=== PATIENT | male | born 1970 | race Caucasian/White ===

== ENCOUNTER 2018-08-11 19:34 | Outpatient (CLI) | payer MEDICAID | END 2018-08-11 19:35 | disposition critical access hospital (66) | LOC: EMS 19:34 | PROVIDERS: ATTEND Surgery | DX: R45.1 Restlessness and agitation (principal); R46.89 Other symptoms and signs involving appearance and behavior | CPT/HCPCS: A0425; A0429; A0999 ==

== ENCOUNTER 2018-08-11 19:50 | Emergency (ER) | payer OTHER ==
--- NOTE | 2018-08-11 20:40 | ED Physician Documentation ---
History of Present Illness - Stated complaint Stated Complaint: FIT FOR CONFINEMENT - Chief complaint Chief Complaint: General - History obtained from History obtained from: Patient, Police - History of Present Illness Timing: Today (He was intoxicated and he is being arrested. At worst his last drink was 6 or 630 about 2 to 2-1/2 hours ago on my examination. 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.) Review of Systems Constitutional: denies: Fever, Chills Nose: denies: Rhinorrhea / runny nose, Congestion Cardiac: denies: Chest pain / pressure, Palpitations PD PAST MEDICAL HISTORY - Past Medical History Cardiovascular: None Respiratory: None Endocrine/Autoimmune: None GI: None : None HEENT: None Psych: None Musculoskeletal: Chronic back pain Derm: None - Past Surgical History Past Surgical History: Yes General: Appendectomy HEENT: Cataracts - Present Medications Home Medications: Ambulatory Orders Medication Instructions Recorded Confirmed cephALEXin [Cephalexin] 500 mg PO QID #28 tablet 09/30/15 - Allergies Allergies/Adverse Reactions: Allergies Allergy/AdvReac Type Severity Reaction Status Date / Time morphine AdvReac Intermediate Hallucinati Verified 02/04/14 10:38 ons - Social History Does the pt smoke?: Yes Smoking Status: Current every day smoker Does the pt drink ETOH?: Yes Does the pt have substance abuse?: No - Immunizations Immunizations are current?: Yes Immunizations: TDAP current <10years - POLST Patient has POLST: No PD ED PE NORMAL - Vitals Vital signs reviewed: Yes - General General: Other (He was screaming and agitated on arrival, he is since calmed down without any pharmacologic intervention. He is awake alert and oriented with slightly slurred speech but he is cogent and cooperative.) - HEENT HEENT: PERRL, Other (sl nystagmus) - Neck Neck: Supple, no meningeal sign, No bony TTP - Neuro Neuro: Alert and oriented X 3, Normal speech - Psych Psych: Normal mood, Normal affect Results - Vitals Vitals: Vital Signs - 24 hr 08/11/18 20:05 Temperature 36.6 C Heart Rate 80 Respiratory 20 Rate Blood Pressure 136/95 H O2 Saturation 97 Oxygen O2 Source Room air PD MEDICAL DECISION MAKING - ED course ED course: He has not drank in 2-2.5 hours so clincally ok for dischg to shelter. Tried calling [facility] to call me back. Departure - Departure Disposition: 01 Home, Self Care Clinical Impression: Alcohol intoxication Qualifiers: Complication of substance-induced condition: uncomplicated Qualified Code(s): F10.920 - Alcohol use, unspecified with intoxication, uncomplicated Condition: Good Record reviewed to determine appropriate education?: Yes Instructions: ED Alcohol Intoxication
[2018-08-11 20:49] VITALS: BP 125/92
== END 2018-08-11 20:54 | disposition home or self-care (01) ==
LOC: EDUNIT# → EDBD → ED 19:50
DX: Z02.89 Encounter for other administrative examinations (principal); F10.129 Alcohol abuse with intoxication, unspecified; F17.200 Nicotine dependence, unspecified, uncomplicated
CPT/HCPCS: 99281; 99283

== ENCOUNTER 2019-06-25 16:06 | Outpatient (CLI) | payer MEDICAID | END 2019-06-25 16:07 | disposition critical access hospital (66) | LOC: EMS 16:06 | PROVIDERS: ATTEND Surgery | DX: S01.81XA Laceration without foreign body of other part of head, initial encounter (principal); V17.4XXA Pedal cycle driver injured in collision with fixed or stationary object in traffic accident, initial encounter; Y93.55 Activity, bike riding; Y92.410 Unspecified street and highway as the place of occurrence of the external cause | CPT/HCPCS: A0425; A0429; A0999 ==

== ENCOUNTER 2019-06-25 16:32 | Emergency (ER) | payer MEDICAID, OTHER ==
[2019-06-25] MEDS ORDERED: LIDOCAINE-MPF 2% 5 ML VIAL SUBQ STA (17:16)
--- NOTE | 2019-06-25 17:19 | ED Physician Documentation ---
History of Present Illness - Stated complaint Stated Complaint: HEAD LAC - Chief complaint Chief Complaint: Trauma Hd/Nk - History obtained from History obtained from: Patient - History of Present Illness Timing: Unknown - Additonal information Additional information: Patient is brought to the emergency department via EMS for chief complaint of intoxication, fall, and scalp laceration.Patient does not remember exactly what happened or what he hit his head on. He denies any pain anywhere else or any other complaints. He does admit to drinking "2 beers". He denies drinking any other alcohol or taking any other substances. Patient states he is otherwise healthy. No other complaints at this time. Review of Systems Ten Systems: 10 systems reviewed and negative Constitutional: reports: Reviewed and negative Eyes: reports: Reviewed and negative Ears: reports: Reviewed and negative Nose: reports: Reviewed and negative Throat: reports: Reviewed and negative Cardiac: reports: Reviewed and negative Respiratory: reports: Reviewed and negative GI: reports: Reviewed and negative : reports: Reviewed and negative Skin: reports: Reviewed and negative Musculoskeletal: reports: Reviewed and negative Neurologic: reports: Reviewed and negative Psychiatric: reports: Reviewed and negative Endocrine: reports: Reviewed and negative Immunocompromised: reports: Reviewed and negative PD PAST MEDICAL HISTORY - Past Medical History Cardiovascular: None Respiratory: None Endocrine/Autoimmune: None GI: None : None HEENT: None Psych: None Musculoskeletal: Chronic back pain Derm: None - Past Surgical History Past Surgical History: Yes General: Appendectomy HEENT: Cataracts - Present Medications Home Medications: Ambulatory Orders Medication Instructions Recorded Confirmed cephALEXin [Cephalexin] 500 mg PO QID #28 tablet 09/30/15 - Allergies Allergies/Adverse Reactions: Allergies Allergy/AdvReac Type Severity Reaction Status Date / Time morphine AdvReac Intermediate Hallucinati Verified 02/04/14 10:38 ons - Social History Does the pt smoke?: Yes Smoking Status: Current every day smoker Does the pt drink ETOH?: Yes Does the pt have substance abuse?: No - Immunizations Immunizations are current?: Yes Immunizations: TDAP current <10years - POLST Patient has POLST: No PD ED PE NORMAL - Vitals Vital signs reviewed: Yes - General General: No acute distress, Other (Patient answers questions but is drowsy. He smells of alcohol. He is somewhat disheveled and has dried blood in his hands.) - HEENT HEENT: PERRL, Other (Patient has a2.5 cm laceration about 1 and half centimeter superior to the lateral aspect of his left eyebrow. This is approximately 4 mm in depth. No other head trauma noted.No foreign bodies in the wound. 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 He does answer questions appropriately, though lacks memory of the day's events.) - Psych Psych: Normal mood, Normal affect Results - Vitals Vitals: Vital Signs - 24 hr 06/25/19 06/25/19 16:35 17:44 Temperature 36.9 C 36.8 C Heart Rate 74 69 Respiratory 18 22 Rate Blood Pressure 106/66 139/79 H O2 Saturation 97 99 Oxygen O2 Source Room air - Labs Labs: Laboratory Tests 06/25/19 17:51 Ethyl Alcohol 240.2 - Rads (name of study) CT scan head Radiology: Final report received, See rad report (Negative) PD MEDICAL DECISION MAKING - ED course Complexity details: reviewed old records, reviewed results, re-evaluated patient, considered differential, d/w patient ED course: Patient was worked up with head CT and alcohol level. CT scan of the head was unremarkable. As I was preparing supplies In another room to repair the patient's laceration, the patient eloped from the emergency department. Nursing staff did try to find him, but the patient had already left the premises. Departure - Departure Disposition: ED Elope Clinical Impression: Acute alcohol intoxication Qualifiers: Complication of substance-induced condition: uncomplicated Qualified Code(s): F10.920 - Alcohol use, unspecified with intoxication, uncomplicated Forehead laceration Qualifiers: Encounter type: initial encounter Qualified Code(s): S01.81XA - Laceration without foreign body of other part of head, initial encounter Closed head injury Qualifiers: Encounter type: initial encounter Qualified Code(s): S09.90XA - Unspecified injury of head, initial encounter Condition: Poor Discharge Date/Time: 06/25/19 18:05
--- NOTE | 2019-06-25 17:48 | CT Report ---
Reason: trauma to head Procedure Date: 06/25/2019 Accession Number: [id number] / [id number] Procedure: CT - HEAD WO CPT Code: Final Report FULL RESULT: EXAM: CT HEAD EXAM DATE: 06/25/2019 05:35 PM. CLINICAL HISTORY: Trauma to head. COMPARISON: HEAD W/O 10/14/2013 1:10 AM. TECHNIQUE: Multiaxial CT images were obtained from the foramen magnum to the vertex. Reformats: Sagittal and coronal. IV contrast: None. In accordance with CT protocol optimization, one or more of the following dose reduction techniques were utilized for this exam: automated exposure control, adjustment of mA and/or KV based on patient size, or use of iterative reconstructive technique. FINDINGS: Parenchyma: No intraparenchymal hemorrhage, mass effect, or CT findings of evolving acute/subacute infarct. [place]-white differentiation is distinct. Extraaxial Spaces: Normal for age. No subdural or epidural collections identified. Ventricles: The ventricles and basal cisterns are patent. No hydrocephalus or midline shift. Sinuses: The visualized paranasal sinuses and mastoid air cells are clear. Bones: No evidence of fracture or calvarial defect. Other: The visualized superficial soft tissues are unremarkable; no hematoma or edema is evident. IMPRESSION: Normal head CT. [facility]
[2019-06-25 18:01] VITALS: BP 139/79
== END 2019-06-25 18:05 | disposition left against medical advice (07) ==
LOC: ED 16:32
DX: S01.81XA Laceration without foreign body of other part of head, initial encounter (principal); S09.90XA Unspecified injury of head, initial encounter; W19.XXXA Unspecified fall, initial encounter; Y93.55 Activity, bike riding; F10.129 Alcohol abuse with intoxication, unspecified; F17.200 Nicotine dependence, unspecified, uncomplicated; Z53.20 Procedure and treatment not carried out because of patient's decision for unspecified reasons
CPT/HCPCS: 36415; 70450; 80320; 99283; 99284